=== PATIENT | male | born 1960 | race Hispanic/Latino ===

== ENCOUNTER 2023-02-10 19:19 | Inpatient (IN) | payer OTHER ==
[~2023-02-10] VITALS: Ht 172.7 cm; Wt 88.5 kg
[2023-02-10] MEDS ORDERED: PANTOPRAZOLE 40 MG/VIAL IVP STA (20:13)
[2023-02-10] MEDS ORDERED: MAG/ALUM/SIMETH 30 ML UDCUP ONE (20:27)
[2023-02-10] MEDS ORDERED: LIDOCAINE HCL 2% VISCOUS 15 ML UDCUP PO ONE (20:30)
[2023-02-10] MEDS: SUCRALFATE 1 GM TABLET PO SCH (20:33)
[2023-02-10 20:38] LABS: BASOPHILS % (AUTO) 0.5 % (0.0-5.0); EOSINOPHILS % (AUTO) 1.3 % (0.0-8.0); HEMATOCRIT 45.9 % (42-54); LYMPHOCYTES % (AUTO) 11.1 % (21.0-51.0); MEAN CORPUSCULAR HEMOGLOBIN 29.6 pg (27.0-33.0); MEAN CORPUSCULAR HGB CONC 34.2 g/dL (32.0-36.0); MEAN CORPUSCULAR VOLUME 86.6 fL (79-99); MONOCYTES % (AUTO) 4.6 % (3.0-13.0); NEUTROPHILS % (AUTO) 82.1 % (40.0-77.0); PLATELET COUNT (AUTO) 357 K/uL (130-400); RED CELL DISTRIBUTION WIDTH 13.7 % (11.0-15.5); WHITE BLOOD COUNT (AUTO) 15.7 K/uL (4.8-10.8)
[2023-02-10 20:41] LABS: APPEARANCE,URINE CLEAR (CLEAR); BILIRUBIN,URINE NEGATIVE (NEGATIVE); COLOR,URINE LIGHT-YELLOW (YELLOW); GLUCOSE, URINE (UA) 300 mg/dL (NEGATIVE); KETONES,URINE 10 mg/dL (NEGATIVE); LEUKOCYTE ESTERASE ,URINE NEGATIVE Leu/uL (NEGATIVE); NITRATE,URINE NEGATIVE (NEGATIVE); OCCULT BLOOD,URINE NEGATIVE (NEGATIVE); PROTEIN,URINE 20 mg/dL (NEGATIVE); UROBILINOGEN,URINE 0.2 mg/dL (0.2-1.0)
[2023-02-10 20:52] LABS: MUCUS,URINE RARE LPF (None Seen); RBC,URINE 0-1 /HPF (0-1); SQUAMOUS EPITHELIAL CELL,UR RARE /HPF (0-2); WBC,URINE 0-1 /HPF (0-1)
[2023-02-10 20:53] LABS: CREATININE 0.9 mg/dL (0.5-1.5); POTASSIUM 3.8 mmol/L (3.5-5.1)
[2023-02-10 21:00] LABS: ALBUMIN 4.4 g/dL (3.5-5.0); TOTAL PROTEIN, SERUM 7.8 g/dL (6.0-8.3)
[2023-02-10] MEDS ORDERED: ONDANSETRON 4MG INJ IVP ONE (21:30)
[2023-02-10] MEDS ORDERED: MORPHINE 4 MG SYG IVP ONE (21:30)
[2023-02-10] MEDS ORDERED: MORPHINE 4 MG SYG ONE (21:32)
[2023-02-10] MEDS ORDERED: ONDANSETRON 4MG INJ ONE (21:32)
[2023-02-10] MEDS ORDERED: IOHEXOL 350 MG/ML 100ML INFUS..BTL IV ONE (21:57)
[2023-02-10] MEDS ORDERED: METRONIDAZOLE 250MG/50ML 50 ML IV STA (23:02)
[2023-02-10] MEDS ORDERED: LEVOFLOXACIN 750 MG/D5W 150ML BAG IVPB STA (23:02)
[2023-02-10] MEDS ORDERED: CIPR500S5 PO (23:17)
[2023-02-10] MEDS ORDERED: METR-172 PO (23:17)
[2023-02-10] MEDS ORDERED: METRONIDAZOLE 500MG/100ML BAG 100 ML ONE (23:40)
[2023-02-11] MEDS ORDERED: MORPHINE 4 MG SYG IVP ONE (00:30)
[2023-02-11] MEDS: METRONIDAZOLE 500MG/100ML BAG 100 ML IVPB SCH ×3 (00:50→21:13)
[2023-02-11] MEDS ORDERED: ONDANSETRON 4MG INJ IVP ONE (01:00)
[2023-02-11] MEDS ORDERED: PROCHLORPERAZINE 10MG/2ML INJ IV STA (01:44)
[2023-02-11] MEDS ORDERED: DiphenhydrAMINE HCL 50 MG/ML VIAL IV STA (01:44)
[2023-02-11] MEDS ORDERED: NITROGLYCERIN 0.4 MG SL TAB SL PRN (02:30)
[2023-02-11] MEDS ORDERED: ONDANSETRON 4MG INJ IV PRN (02:30)
[2023-02-11] MEDS ORDERED: ACETAMINOPHEN 325 MG TAB PO PRN ×2 (02:30)
[2023-02-11] MEDS: 0.9%NACL 1000ML 1,000 ML IV SCH ×3 (02:37→21:59)
[2023-02-11] MEDS ORDERED: DEXTROSE 50%-WATER 50 ML DISP.SYRIN IV PRN (03:00)
[2023-02-11] MEDS ORDERED: GLUCAGON 1MG KIT 1 MG ML IM PRN (03:00)
[2023-02-11 05:31] LABS: AMPHET/METH SCREEN,URINE NEGATIVE (NEGATIVE); BARBITURATE SCREEN, URINE NEGATIVE (NEGATIVE); BENZODIAZEPINES SCREEN,URINE NEGATIVE (NEGATIVE); CANNABINOID SCREEN,URINE NEGATIVE (NEGATIVE); COCAINE SCREEN,URINE NEGATIVE (NEGATIVE); OPIATE SCREEN,URINE NEGATIVE (NEGATIVE); PHENCYCLIDINE SCREEN,URINE NEGATIVE (NEGATIVE)
[2023-02-11] MEDS: INSULIN HUMULIN R 100 UNIT/ML 3ML SQ SCH ×3 (06:28→18:00)
[2023-02-11 07:26] LABS: BASOPHILS % (AUTO) 0.3 % (0.0-5.0); EOSINOPHILS % (AUTO) 0.6 % (0.0-8.0); HEMATOCRIT 45.4 % (42-54); LYMPHOCYTES % (AUTO) 4.5 % (21.0-51.0); MEAN CORPUSCULAR HEMOGLOBIN 29.4 pg (27.0-33.0); MEAN CORPUSCULAR HGB CONC 33.9 g/dL (32.0-36.0); MEAN CORPUSCULAR VOLUME 86.8 fL (79-99); MONOCYTES % (AUTO) 7.9 % (3.0-13.0); NEUTROPHILS % (AUTO) 86.3 % (40.0-77.0); PLATELET COUNT (AUTO) 338 K/uL (130-400); RED BLOOD CELL COUNT(AUTO) 5.23 MIL/uL (4.50-6.20); RED CELL DISTRIBUTION WIDTH 13.7 % (11.0-15.5)
[2023-02-11 07:48] LABS: ALBUMIN 3.8 g/dL (3.5-5.0); CREATININE 0.9 mg/dL (0.5-1.5); CRP QUANTITATIVE 19.7 mg/L (0.00-9.0); MAGNESIUM 1.6 mg/dL (1.80-2.40); POTASSIUM 3.9 mmol/L (3.5-5.1)
[2023-02-11 08:00] VITALS: BP 149/74
[2023-02-11 08:09] LABS: BAND NEUTROPHILS % (MANUAL) 50 % (0-2); EOSINOPHILS % (MANUAL) 3 % (1-6); LYMPHOCYTES % (MANUAL) 3 % (22-44); MONOCYTES % (MANUAL) 7 % (2-9); REACTIVE LYMPHOCYTES 1 % (0-0); SEGMENTED NEUTROPHILS % 36 % (40-70)
[2023-02-11 08:11] LABS: MAN.DIFF COMMENT-IMPRESSION MANUAL DIFFERENTIAL; PLATELET MORPHOLOGY COMMENT ADEQUATE
[2023-02-11] MEDS: FAMOTIDINE 20MG VIAL IV SCH ×2 (09:03→19:52)
[2023-02-11] MEDS: ENOXAPARIN SODIUM 40 MG/0.4 ML SYRINGE SQ SCH (09:03)
[2023-02-11 11:43] VITALS: BP 134/73
[2023-02-11 16:00] VITALS: BP 145/78
[2023-02-11] MEDS ORDERED: PEG 3350/NA SULF,BICARB,CL/KCL 4000 ML SOLN PO SCH (17:30)
[2023-02-11] MEDS: SUCRALFATE 1 GM TABLET PO SCH (19:53)
[2023-02-11 20:00] VITALS: BP 157/66
[2023-02-11] MEDS ORDERED: METF-446 PO (20:40)
[2023-02-12] VITALS (24 sets, daily range): BP systolic 105–168; BP diastolic 54–81
[2023-02-12] MEDS: METRONIDAZOLE 500MG/100ML BAG 100 ML IVPB SCH ×3 (05:37→20:50)
[2023-02-12] MEDS: INSULIN HUMULIN R 100 UNIT/ML 3ML SQ SCH ×4 (05:46→17:34)
[2023-02-12 08:55] LABS: INR 0.98 (0.85-1.15); PROTHROMBIN TIME 10.7 SEC (9.6-11.6)
[2023-02-12 08:56] LABS: PARTIAL THROMBOPLASTIN TIME 32.2 SEC (26.3-35.5)
[2023-02-12] MEDS: ENOXAPARIN SODIUM 40 MG/0.4 ML SYRINGE SQ SCH (09:00)
[2023-02-12] MEDS: FAMOTIDINE 20MG VIAL IV SCH ×2 (09:08→20:51)
[2023-02-12] MEDS: 0.9%NACL 1000ML 1,000 ML IV SCH ×2 (09:10→17:34)
[2023-02-12] MEDS ORDERED: PROPOFOL 10 MG/ML 20ML VIAL IV ONE (11:17)
[2023-02-12] MEDS ORDERED: GLYCOPYRROLATE 1 MG/5 ML SYRINGE ONE (11:17)
[2023-02-12] MEDS: SUCRALFATE 1 GM TABLET PO SCH (20:54)
[2023-02-13] VITALS: BP 126/66
[2023-02-13 04:00] VITALS: BP 134/72
[2023-02-13] MEDS: 0.9%NACL 1000ML 1,000 ML IV SCH (04:39)
[2023-02-13] MEDS: METRONIDAZOLE 500MG/100ML BAG 100 ML IVPB SCH (05:36)
[2023-02-13] MEDS: INSULIN HUMULIN R 100 UNIT/ML 3ML SQ SCH ×2 (05:36)
[2023-02-13 06:04] LABS: BASOPHILS % (AUTO) 0.7 % (0.0-5.0); HEMATOCRIT 36.7 % (42-54); LYMPHOCYTES % (AUTO) 40.9 % (21.0-51.0); MEAN CORPUSCULAR HEMOGLOBIN 29.9 pg (27.0-33.0); MEAN CORPUSCULAR HGB CONC 33.5 g/dL (32.0-36.0); MEAN CORPUSCULAR VOLUME 89.3 fL (79-99); MONOCYTES % (AUTO) 7.9 % (3.0-13.0); NEUTROPHILS % (AUTO) 45.1 % (40.0-77.0); PLATELET COUNT (AUTO) 265 K/uL (130-400); RED BLOOD CELL COUNT(AUTO) 4.11 MIL/uL (4.50-6.20); RED CELL DISTRIBUTION WIDTH 13.9 % (11.0-15.5); WHITE BLOOD COUNT (AUTO) 7.6 K/uL (4.8-10.8)
[2023-02-13 06:26] LABS: BILIRUBIN,DIRECT 0.1 mg/dL (0.0-0.3); CREATININE 0.7 mg/dL (0.5-1.5); POTASSIUM 3.4 mmol/L (3.5-5.1); TOTAL PROTEIN, SERUM 5.6 g/dL (6.0-8.3)
[2023-02-13 08:00] VITALS: BP 137/77
[2023-02-13] MEDS ORDERED: KCL 20 MEQ ERTAB PO ONE (09:05)
[2023-02-13] MEDS: FAMOTIDINE 20MG VIAL IV SCH (09:11)
[2023-02-13] MEDS: ENOXAPARIN SODIUM 40 MG/0.4 ML SYRINGE SQ SCH (09:12)
[2023-02-13] MEDS ORDERED: POTASSIUM CHLORIDE 10% ELIXIR 20 MEQ/15 ML UDCUP PO PRN (09:30)
[2023-02-13] MEDS ORDERED: KCL 20 MEQ ERTAB PO PRN (09:30)
[2023-02-13] MEDS ORDERED: METR-172 PO (11:48)
== END 2023-02-13 12:30 | disposition home or self-care (01) | DRG 392 ==
LOC: EDH 19:19 → EDHIP 19:20 → 3BH 02-11 08:00
PROVIDERS: ADMIT Internal Medicine; ATTEND Internal Medicine
PROC: 0DB78ZX Excision of Stomach, Pylorus, Via Natural or Artificial Opening Endoscopic, Diagnostic (ICD-10-PCS; principal; 2023-02-12)
PROC: 0DJD8ZZ Inspection of Lower Intestinal Tract, Via Natural or Artificial Opening Endoscopic (ICD-10-PCS; 2023-02-12)
DX: K57.30 Diverticulosis of large intestine without perforation or abscess without bleeding (principal); K52.9 Noninfective gastroenteritis and colitis, unspecified; K76.0 Fatty (change of) liver, not elsewhere classified; Z20.822 Contact with and (suspected) exposure to COVID-19; E11.9 Type 2 diabetes mellitus without complications; I10 Essential (primary) hypertension; Z87.19 Personal history of other diseases of the digestive system
CPT/HCPCS: 36415; 43239; 71045; 74177; 76705; 80048; 80053; 80076; 80305; 81001; 82948; 83036; 83690; 83735; 84484; 85025; 85610; 85730; 86140; 87040; 87426; 93005; A4606; C9113; G0378; J0780; J1200; J1650; J1815; J1956; J2270; J2405; J2704; J3490; J7030; Q9967